=== PATIENT | female | born 1970 | race Caucasian/White ===

== ENCOUNTER → 2016-08-22 | Outpatient (CLI) | payer OTHER ==
--- NOTE | 2016-08-25 11:22 | MM ---
Reason for exam: screening (asymptomatic). Baseline mammogram. History: Family history of breast cancer in maternal grandfather and breast cancer in aunt. Physical Findings: Nurse did not find any significant physical abnormalities on exam. MG Screening Mammo w CAD Bilateral CC and MLO view(s) were taken. The breast tissue is extremely dense which could obscure a lesion on mammography. Finding: There are typically benign grouped calcifications in the left breast. These results were verbally communicated with the patient and result sheet given to the patient on 08/22/16. ASSESSMENT: Benign, BI-RAD 2 RECOMMENDATION: Follow-up diagnostic mammogram of the left breast in 6 months.
== END | disposition home or self-care (01) ==
LOC: RADMAMWWP 14:22
PROVIDERS: ATTEND Internal Medicine
DX: Z12.31 Encounter for screening mammogram for malignant neoplasm of breast (principal)

== ENCOUNTER → 2017-06-17 | Outpatient (CLI) | payer OTHER ==
--- NOTE | 2017-06-17 15:07 | US ---
EXAMINATION TYPE: US venous doppler duplex LE RT DATE OF EXAM: 06/17/2017 2:45 PM COMPARISON: NONE CLINICAL HISTORY: R00.2 palpitations, M79.661 Rt leg pain. No swelling or redness. No hx of DVT. No t on any blood thinners. SIDE PERFORMED: Right TECHNIQUE: The lower extremity deep venous system is examined utilizing real time linear array sonog luis alberto with graded compression, doppler sonography and color-flow sonography. VESSELS IMAGED: External Iliac Vein (EIV) Common Femoral Vein Deep Femoral Vein Greater Saphenous Vein * Femoral Vein Popliteal Vein Small Saphenous Vein * Proximal Calf Veins (* superficial vessels) Right Leg: Appears negative for DVT Grayscale, color doppler, spectral doppler imaging performed of the deep veins of the lower extremiti es. There is normal flow, compressibility, vascular waveforms. IMPRESSION: No sonographic evidence of deep venous stenosis within the right lower extremity.
--- NOTE | 2017-06-22 14:22 | EST ---
EXERCISE STRESS HOLTER MONITOR: The patient was monitored for 24 hours. The baseline rhythm is a sinus mechanism with normal conduction. The average rate 85 beats per minute. Minimum 60, maximal 141 beats per minute. Ventricular ectopic activity was present in the form of rare single PVCs. Supraventricular ectopy was present in form of rare see single PACs. Symptoms of flutter, palpitation, short of breath, heart rate racing did not correlate with any clear dysrhythmia. CONCLUSION: 1. Sinus mechanism, based rhythm. 2. Rare ventricular ectopic activity. 3. Rare supraventricular ectopic activity. 4. Symptoms did not correlate with any dysrhythmia. MMODL / IJN: [id number] /
== END | disposition home or self-care (01) ==
LOC: RADECHMAIN 12:35
PROVIDERS: ATTEND Internal Medicine
DX: I49.3 Ventricular premature depolarization (principal); I49.1 Atrial premature depolarization; M79.661 Pain in right lower leg
CPT/HCPCS: 93225; 93226

== ENCOUNTER → 2017-06-26 | Outpatient (CLI) | payer OTHER ==
--- NOTE | 2017-06-29 07:51 | MM ---
Reason for exam: additional evaluation requested from abnormal screening. Last mammogram was performed 10 months ago. History: Family history of breast cancer in cousin at age 46, breast cancer in maternal grandfather, and breast cancer in aunt. Took hormonal contraceptives for 1 year beginning at age 20. Physical Findings: Nurse did not find any significant physical abnormalities on exam. MG Diagnostic Mammo LT w CAD CC and MLO view(s) were taken of the left breast. Prior study comparison: August 22, 2016, bilateral MG screening mammo w CAD. The breast tissue is extremely dense which could obscure a lesion on mammography. Finding: There are stable, fine, grouped/clustered calcifications in the left breast. No significant changes in finding since August 22, 2016. These results were verbally communicated with the patient and result sheet given to the patient on 06/26/17. ASSESSMENT: Probably benign, BI-RAD 3 RECOMMENDATION: Follow-up diagnostic mammogram of both breasts in 2 months. Back on schedule for August 2017.
== END | disposition home or self-care (01) ==
LOC: RADMAMWWP 15:49
PROVIDERS: ATTEND Internal Medicine
DX: R92.8 Other abnormal and inconclusive findings on diagnostic imaging of breast (principal)
CPT/HCPCS: 77065

== ENCOUNTER → 2019-12-22 | Outpatient (CLI) | payer OTHER ==
--- NOTE | 2019-12-22 11:18 | MM ---
Reason for exam: clinical finding. Last mammogram was performed 2 years and 6 months ago. History: Patient is postmenopausal. Family history of breast cancer in paternal cousin at age 46, breast cancer in maternal grandfather, and breast cancer in paternal aunt at age 60. Took hormonal contraceptives for 1 year beginning at age 20. Physical Findings: Nurse Summary: 4 x 4cm nodule in the right breast at 10 o'clock (nurse dw). MG Diagnostic Mammo w CAD KRISTIE Bilateral CC and MLO view(s) were taken. Prior study comparison: June 26, 2017, left breast MG diagnostic mammo LT w CAD. August 22, 2016, bilateral MG screening mammo w CAD. The breast tissue is heterogeneously dense. This may lower the sensitivity of mammography. Finding #1: There is a 45 mm mass in the upper outer quadrant of the right breast. Finding #2: There are typically benign calcifications in both breasts. These results were verbally communicated with the patient and result sheet given to the patient on 12/22/19. ASSESSMENT: Suspicious, BI-RAD 4 RECOMMENDATION: Ultrasound core biopsy of the right breast. Called Dr. Hart's office with mammographic findings and has scheduled an appointment for the patient for 12/29/19 at 3:[address] Taylor. PRELIMINARY REPORT CALLED AND FAXED TO DR. TAYLOR ON 12/22/19.
--- NOTE | 2019-12-22 11:19 | USB ---
Reason for exam: clinical finding. History: Patient is postmenopausal. Family history of breast cancer in paternal cousin at age 46, breast cancer in maternal grandfather, and breast cancer in paternal aunt at age 60. Took hormonal contraceptives for 1 year beginning at age 20. US Breast Limited RT Right limited breast ultrasound including focal area of concern, retroareolar and axilla demonstrates a 5.1 x 3.2 x 5.3cm lobular, solid, mixed, vascular lesion at 10 o'clock BB and a 1.1cm lymph node at the axilla tail. These results were verbally communicated with the patient and result sheet given to the patient on 12/22/19. ASSESSMENT: Suspicious, BI-RAD 4 RECOMMENDATION: Ultrasound core biopsy of the right breast. Called Dr. Hart's office with mammographic findings and has scheduled an appointment for the patient for 12/29/19 at 3:[address] Taylor. PRELIMINARY REPORT CALLED AND FAXED TO DR. TAYLOR ON 12/22/19.
== END | disposition home or self-care (01) ==
LOC: RADMAMWWP 09:29
PROVIDERS: ATTEND Internal Medicine
DX: N63.10 Unspecified lump in the right breast, unspecified quadrant (principal); R92.8 Other abnormal and inconclusive findings on diagnostic imaging of breast
CPT/HCPCS: 77066

== ENCOUNTER 2020-01-24 09:23 | Day surgery (SDC) | payer OTHER ==
[2020-01-24 09:46] VITALS: RESP 16; TEMP 98.1
[2020-01-24 10:58] VITALS: BP 154/86; PULSE 90
--- NOTE | 2020-01-24 12:00 | USB ---
EXAMINATION TYPE: US breast needle core RT DATE OF EXAM: 01/24/2020 HISTORY: Breast cancer FINDINGS: Maximal barrier technique was utilized. Hand hygiene achieved withal coho l-based hand rub . The skin overlying a suitable path to the patient's right axillary node was localized with ultrasou nd and the overlying skin prepped and draped. Incidental note made of 2 additional nodes. Ultrasound was utilized with sterile technique. Lidocaine was used for local anesthesia. A skin abrahan was made with a scalpel. An 18-gauge needle was advanced under direct ultrasound guidance and core specimen obtained of the mass. 2 passes were made. Specimen submitted in formalin to Pathology. Following th e procedure, hemostasis achieved and the patient is discharged in stable condition without complicati on. IMPRESSION:STATUS POST ULTRASOUND GUIDED CORE BIOPSY OF right axillary node, PATHOLOGY IS PENDING. T HIS PROCEDURE IS PERFORMED BY THE UNDERSIGNED.
== END 2020-01-24 11:05 | disposition home or self-care (01) ==
LOC: RADPROMAIN 09:23
PROVIDERS: ATTEND Internal Medicine Hematology & Oncology
DX: C50.411 Malignant neoplasm of upper-outer quadrant of right female breast (principal)
CPT/HCPCS: 88305; 88341; 88342

== ENCOUNTER → 2020-01-28 | Outpatient (CLI) | payer OTHER ==
--- NOTE | 2020-01-28 13:50 | PE ---
EXAMINATION TYPE: PET CT fusion skull to thigh DATE OF EXAM: 01/28/2020 COMPARISON: Bilateral breast mammogram December 22, 2019. Right breast ultrasound same date. HISTORY: Right breast cancer diagnosed January 24, 2020 on biopsy TECHNIQUE: Following the intravenous administration of 14.5 mCi of F-18 FDG, whole body images are p erformed from the skull base to the midthigh. Images are reviewed on the computer in the coronal, ax ial, and sagittal planes. Reconstructed rotating images are created on independent workstation and r eviewed on the computer. A localization noncontrast CT is performed in conjunction with the PET sca n. SCAN: Initial Scan FINDINGS: SKULL BASE AND NECK: No areas of suspicious hypermetabolic uptake. CHEST, MEDIASTINUM, AND HILAR REGION: Corresponding to recent mammograms there is background diffusel y dense fibroglandular tissue with lateral hypermetabolic mass measuring slightly larger than ultraso und at 5.4 x 4.8 cm size axial image 85. There are suspicious mildly hypermetabolic right axillary lymph nodes, max SUV less than 2.5. Largest measures 1.7 x 1.3 cm axial image 69 with loss of central fatty hilum. No additional suspicious masses or adenopathy or abnormal hypermetabolic uptake in either breast or r emainder of the thorax. ABDOMEN AND PELVIS: No areas of suspicious hypermetabolic uptake. OSSEOUS STRUCTURES: No areas of suspicious hypermetabolic uptake. OTHER CT: Low lung volumes are present. There is left internal jugular Mediport catheter terminating at cavoatrial junction. Mild cardiomegaly with tiny anterior inferior pericardial effusion. Anteverted uterus with scattered pelvic phleboliths. IMPRESSION: Hypermetabolic uptake in the known right lateral biopsy-proven breast mass or malignancy. Suspicious right axillary adenopathy. No metastatic disease is noted.
== END | disposition home or self-care (01) ==
LOC: RADPETMAIN 08:25
PROVIDERS: ATTEND Internal Medicine Hematology & Oncology
DX: C50.411 Malignant neoplasm of upper-outer quadrant of right female breast (principal)
CPT/HCPCS: 78815; A9552

== ENCOUNTER → 2020-06-04 | Outpatient (CLI) | payer OTHER | END | disposition home or self-care (01) | LOC: LABWHC1 11:43 | PROVIDERS: ATTEND Surgery | DX: Z20.822 Contact with and (suspected) exposure to COVID-19 (principal) | CPT/HCPCS: U0003; C9803; U0005 ==

== ENCOUNTER 2020-06-11 10:43 | Day surgery (SDC) | payer OTHER ==
[2020-06-07 15:59] VITALS: BMI 31.8
[~2020-06-11 10:43] MED LIST: Pre Op ABX Message 1 EACH MISC MISCELLANE ONE
[2020-06-11] MEDS ORDERED: DEXAMETHASONE SOD PHOSPHATE 4 MG/ML 1 ML VIAL IV ONE (11:02)
[2020-06-11] MEDS ORDERED: LIDOCAINE 1% (10MG/ML) FOR IV START INTRADERMA PRN (11:02)
[2020-06-11] MEDS ORDERED: MIDAZOLAM 2 MG/2 ML VIAL IV PRN (11:02)
[2020-06-11] MEDS ORDERED: MORPHINE SULFATE 4 MG/ML SYRINGE IV PRN (11:02)
[2020-06-11] MEDS ORDERED: ONDANSETRON 4 MG/2 ML VIAL IVP ONE (11:02)
[2020-06-11] MEDS ORDERED: LACTATED RINGERS 1,000 ML IV SCH (11:02)
[2020-06-11] MEDS ORDERED: ALPRAZolam 0.5 MG TAB ONE (11:17)
--- NOTE | 2020-06-11 12:26 | NM ---
EXAMINATION TYPE: NM sentinel node injection DATE OF EXAM: 06/11/2020 COMPARISON: NONE HISTORY: Right breast CA TECHNIQUE AND FINDINGS: The procedure of sentinel lymph node injection was explained to the patient. The benefits, alternatives, and risks were discussed. An informed consent was then obtained. Overlying skin is cleaned with sterile alcohol. Following this, 509 uCi Tc99m Tilmanocept was inject ed in the upper outer aspect of the right nipple intradermally. The patient tolerated the procedure well without any immediate complication. The patient was kept in the radiology department for short stay after the procedure and then taken to surgery for surgical p rocedure what is presumed intraoperative gamma probe will be used for sentinel lymph node detection. IMPRESSION: Right breast radiotracer injection for sentinel node localization as above.
[2020-06-11] MEDS ORDERED: MIDAZOLAM 2 MG/2 ML VIAL ONE (13:02)
[2020-06-11] MEDS ORDERED: fentaNYL (PF) 50 MCG/ML 2 ML AMP ONE (13:02)
[2020-06-11] MEDS ORDERED: LIDOCAINE 1% INJ 10MG/ML (20 ML MDV) ONE (13:02)
[2020-06-11] MEDS ORDERED: PROPOFOL 10 MG/ML 20 ML VIAL IV ONE (13:02)
[2020-06-11] MEDS ORDERED: SUCCINYLCHOLINE CHLORIDE 100 MG/5 ML SYR IV ONE (13:02)
[2020-06-11] MEDS ORDERED: LIDOCAINE 1%-EPI 1:100,000 20 ML VIAL SQ ONE ×2 (13:40)
[2020-06-11] MEDS ORDERED: BUPIVACAINE (PF) 0.25% 30 ML VIAL SQ ONE ×2 (13:41)
[2020-06-11] MEDS ORDERED: LACTATED RINGERS 1,000 ML IV ONE (14:19)
--- NOTE | 2020-06-11 14:51 | P.OP ---
Date of Procedure: 06/11/20 Preoperative Diagnosis: Breast cancer Postoperative Diagnosis: Breast cancer Procedure(s) Performed: Removal of MediPort, sentinel lymph node biopsy, lumpectomy right breast Anesthesia: NASEEM Surgeon: Jeanette Taylor Estimated Blood Loss (ml): 10 Pathology: other Condition: stable Disposition: PACU Indications for Procedure: The patient's a 49-year-old female who presented to the office with a large lump in the right breast. She had preop neoadjuvant therapy and is presenting for surgery. She also has a MediPort which is no longer needed and she is requesting to be removed. Description of Procedure: The patient's taken the operative suite where she is prepped and draped in the usual sterile manner under general endotracheal anesthetic. Beginning in the left chest, local anesthetic was instilled into the skin and subcutaneous tissue. A skin incision is made through the old scar. The MediPort is sharply dissected free and removed intact. The skin is closed with 4-0 Vicryl in a subcuticular manner. Steri-Strips were applied. The area is covered with a sterile towel. Attention is then turned to the right axilla. A sentinel lymph node probe scans the axilla. At the skin level, the count is about 150. A small skin incision is made and dissection is carried down to the lymph nodes. Primary lymph node shows in vivo count of about 650. It is removed. The ex vivo count is about 2900. There is a secondary lymph node which shows a in vivo count of about 80. It is dissected free. The lymph node is removed and ex vivo count is about 1200. The lymph node basins shows minimal residual,. A Ray-Natan is packed into the cavity. Axilla was covered with a sterile towel. Local anesthetic was then instilled into the skin and subcutaneous tissue at the lateral aspect of the areola. A skin incision was made. Dissection was carried out around the mass in the right upper outer quadrant. The breast tissue itself was very dense. The seemed to be fibrocystic change as a 2 cm mass could be felt within this. Small bleeding points are controlled with electrocautery. The biopsy cavity is marked with ligaclips. The skin was closed with 4-0 Vicryl in a subcuticular manner. Results of the sentinel lymph node came back and they were negative for metastatic disease. Gloves and instruments were changed and the axillary incision was closed with 4-0 Vicryl. There steristrips and dressings were applied. She tolerated the procedure without difficulty and was taken to recovery room in satisfactory condition. According to or personnel, all counts were correct. Plan - Discharge Summary Discharge Rx Participant: Yes New Discharge Prescriptions: New traMADol HCL 1 - 2 mg PO Q4-6H PRN #30 tablet PRN Reason: Pain No Action amLODIPine BESYLATE [Norvasc] 5 mg PO HS Pantoprazole Sodium [Protonix] 40 mg PO HS ALPRAZolam [Xanax] 0.5 mg PO DAILY PRN PRN Reason: Anxiety FLUoxetine HCL [PROzac] 20 mg PO HS HYDROcodone/APAP 5-325MG [[place] 5-325] 1 tab PO Q6HR PRN PRN Reason: Pain Acetaminophen [Tylenol Extra Strength] 500 mg PO DIRECTED PRN PRN Reason: Pain Discharge Medication List amLODIPine BESYLATE [Norvasc] 5 mg PO HS 12/10/13 [History] Pantoprazole Sodium [Protonix] 40 mg PO HS 08/15/15 [History] ALPRAZolam [Xanax] 0.5 mg PO DAILY PRN 01/21/16 [History] FLUoxetine HCL [PROzac] 20 mg PO HS 01/23/20 [History] Acetaminophen [Tylenol Extra Strength] 500 mg PO DIRECTED PRN 06/07/20 [History] HYDROcodone/APAP 5-325MG [[place] 5-325] 1 tab PO Q6HR PRN 06/07/20 [History] traMADol HCL 1 - 2 mg PO Q4-6H PRN #30 tablet 06/11/20 [Rx] Follow up Appointment(s)/Referral(s): Jeanette Taylor DO [Doctor of Osteopathic Medicine] - 1 Week Activity/Diet/Wound Care/Special Instructions: Ice to the incisions for 24-48 hours. The dressings should remain until Thursday. They then may be removed and you may shower. Use a light dressing over the incisions as needed. Wear a well supporting bra. Call if questions or concerns Discharge Disposition: HOME SELF-CARE
[2020-06-11 14:54] VITALS: RESP 16; TEMP 97.8
[2020-06-11 16:25] VITALS: BP 140/83; PULSE 77
== END 2020-06-11 16:49 | disposition home or self-care (01) ==
LOC: OR 10:43
PROVIDERS: ATTEND Surgery
DX: Z45.2 Encounter for adjustment and management of vascular access device (principal); C50.911 Malignant neoplasm of unspecified site of right female breast; K21.9 Gastro-esophageal reflux disease without esophagitis; I10 Essential (primary) hypertension; Z98.51 Tubal ligation status; Z98.890 Other specified postprocedural states; F32.9 Major depressive disorder, single episode, unspecified; F41.9 Anxiety disorder, unspecified; Z79.899 Other long term (current) drug therapy; Z88.5 Allergy status to narcotic agent
CPT/HCPCS: 38792; 36590; 19301; 38525; A9520; J2250; J1100; J2405; J2001; J3010; J0330; J2704

== ENCOUNTER → 2021-02-15 | Outpatient (CLI) | payer OTHER ==
--- NOTE | 2021-02-15 15:59 | XR ---
EXAM TYPE: LUMBAR SPINE X RAY SERIES COMPARISON: NONE HISTORY: Pain TECHNIQUE: 3 views are submitted. FINDINGS: Alignment is anatomic. The pedicles are intact. The transverse processes are intact. Mild hypertrop hic changes. There is maintenance of disc space. There is very mild narrowing of the disc space T12-L 1. Facet arthropathy L5-S1. IMPRESSION: 1. Facet arthropathy L4-5 and L5-S1. If there is clinical concern for disc herniation consider MRI. 2. Mild hypertrophic spurring. 3. Mild degenerative disc disease thoracolumbar junction.
== END | disposition home or self-care (01) ==
LOC: RADXRWHC 14:09
PROVIDERS: ATTEND Internal Medicine
DX: M47.895 Other spondylosis, thoracolumbar region (principal); M51.35 Other intervertebral disc degeneration, thoracolumbar region
CPT/HCPCS: 72100

== ENCOUNTER → 2021-02-15 | Outpatient (CLI) | payer OTHER ==
--- NOTE | 2021-02-19 09:21 | MM ---
Reason for exam: additional evaluation requested from prior study. Last mammogram was performed 1 year and 2 months ago. History: Patient is postmenopausal. Family history of breast cancer in paternal cousin at age 46, breast cancer in maternal grandfather, and breast cancer in paternal aunt at age 60. Benign US breast needle core RT of the right breast, January 24, 2020. Chemotherapy. Radiation therapy of the right breast. Took hormonal contraceptives for 1 year beginning at age 20. Physical Findings: Nurse did not find any significant physical abnormalities on exam. MG 3D Diag Mammo W/Cad KRISTIE Bilateral CC and MLO view(s) were taken. Prior study comparison: December 22, 2019, bilateral MG diagnostic mammo w CAD KRISTIE. June 26, 2017, left breast MG diagnostic mammo LT w CAD. The breast tissue is extremely dense which could obscure a lesion on mammography. Benign appearing bilateral calcifications. Post operative changes right breast. These results were verbally communicated with the patient and result sheet given to the patient on 02/15/21. ASSESSMENT: Benign, BI-RAD 2 RECOMMENDATION: Follow-up diagnostic mammogram of both breasts in 1 year.
== END | disposition home or self-care (01) ==
LOC: RADMAMWWP 14:04
PROVIDERS: ATTEND Internal Medicine Hematology & Oncology
DX: R92.8 Other abnormal and inconclusive findings on diagnostic imaging of breast (principal)
CPT/HCPCS: 77066; G0279; 77062

== ENCOUNTER → 2021-02-15 | Outpatient (CLI) | payer OTHER | END | disposition home or self-care (01) | LOC: RADXRMAIN 15:19 | PROVIDERS: ATTEND Internal Medicine | DX: Z53.9 Procedure and treatment not carried out, unspecified reason (principal) ==

== ENCOUNTER → 2021-10-14 | Outpatient (CLI) | payer OTHER ==
--- NOTE | 2021-10-14 18:40 | NM ---
EXAMINATION TYPE: NM bone scan whole body DATE OF EXAM: 10/14/2021 COMPARISON: PET/CT 01/28/2020 HISTORY: 51-year-old female with thoracic spine, shoulders, knee pain. History of breast cancer 2019. Fall onto left hip in August. TECHNIQUE: Delayed whole-body scanning was performed following the injection of 20.6 mCi Tc 99m MDP. Images acquired 3 hours post injection. FINDINGS: Focus of increased activity left maxilla suggesting periodontal disease. Focus of increased activity posterior elements upper right cervical spine on a degenerative basis. Slight asymmetric increased ac tivity right greater than left SI joints, likely degenerative. Additional scattered degenerative tracer activity at both knees. No suspicious distribution of radiotracer to suggest osseous metastatic disease. IMPRESSION: No scintigraphic evidence for osseous metastatic disease. There is some possible asymmetric degenerat yuli change at the right SI joint.
== END | disposition home or self-care (01) ==
LOC: RADNMMAIN 09:06
PROVIDERS: ATTEND Internal Medicine Hematology & Oncology
DX: Z03.89 Encounter for observation for other suspected diseases and conditions ruled out (principal); C50.411 Malignant neoplasm of upper-outer quadrant of right female breast
CPT/HCPCS: 78306; A9503